=== PATIENT | male | born 1935 | race Caucasian/White ===

== ENCOUNTER → 2018-06-22 | Outpatient (CLI) | payer MEDICARE, OTHER ==
[~2018-06-22] MED LIST: ASPIR 8181 MG PO; BRILINTA90 MG PO; CARVEDILOL12.5 MG PO; LEVALBUTER0.63 MG/3 INH; LIPITOR 20 MG T20 M1 PO; LOSARTAN POTAS100 MG PO; METFORMIN HCL500 MG PO; NEURONTIN 300300 M1 PO; NORCO 10-325 T1 EACH PO; PREDNISONE 10 M10 MG PO; PROTONIX40 M1 PO
== END ==
LOC: M.RAD 08:34
DX: M47.816 Spondylosis without myelopathy or radiculopathy, lumbar region (principal); M41.86 Other forms of scoliosis, lumbar region; M25.78 Osteophyte, vertebrae; I25.10 Atherosclerotic heart disease of native coronary artery without angina pectoris

== ENCOUNTER → 2018-06-30 | Outpatient (CLI) | payer MEDICARE, OTHER | LOC: M.LAB 08:21 | DX: C61 Malignant neoplasm of prostate (principal); I25.10 Atherosclerotic heart disease of native coronary artery without angina pectoris; Z87.891 Personal history of nicotine dependence; R97.8 Other abnormal tumor markers; R91.8 Other nonspecific abnormal finding of lung field ==

== ENCOUNTER → 2018-07-11 | Day surgery (SDC) | payer MEDICARE, OTHER ==
--- NOTE | ~2018-07-11 | PROC ---
[address] [address] PROCEDURE REPORT Name: KHOI NOLAN Room: [facility].#: [id number] Admission: 07/11/18 Attend Phys: Khadar Mcpherson MD Discharge: Date of : 35 Report #: [id number] THIS REPORT FOR: //name// For GI report, please see the Provation report in Perceptive 7 content. By: [id number] Records Staff [facility] /ALFONSO
[2018-07-11 12:05] LABS: HEMATOCRIT 38.5 % (42.0-52.0); HEMOGLOBIN 13.1 gm/dL (14.0-18.0); MCH 32.5 pg (26.0-34.0); MCHC 34.1 g/dL (28.0-37.0); MCV 95.4 fL (80.0-100.0); MPV 7.9 fl. (7.2-11.1); RBC 4.04 mil/uL (4.50-6.00); RDW-CV 13.8 % (10.5-14.5); WBC 10.7 thou/uL (4.0-11.0)
[2018-07-11 12:11] LABS: CREATININE 1.2 mg/dL (0.6-1.3); POTASSIUM 5.3 mmol/L (3.5-5.1)
--- NOTE | 2018-07-11 17:31 | EKG ---
[place] [address] ELECTROCARDIOGRAM REPORT Name: KHOI NOLAN Room: [facility].#: [id number] Admission: 07/11/18 Attend Phys: Khadar Mcpherson MD Discharge: Date of : 35 Report #: [id number] THIS REPORT FOR: //name// [facility] Test Date: 2018-07-11 Test Time: 12:49:19 Pat Name: KHOI NOLAN Department: Room: Gender: M Refining Supervisor: : 1935 Requested By: Khadar Mcpherson Order Number: [id number] Reading MD: Jesus Lemus Measurements Intervals [place] Rate: 60 P: HI: 156 QRS: 3 QRSD: 117 T: 88 QT: 407 QTc: 407 Interpretive Statements Atrial-paced rhythm Nonspecific intraventricular conduction delay Anteroseptal infarct, age indeterminate low voltage No previous ECG available for comparison Electronically Signed On 07-11-2018 17:31:31 CDT by Jesus Lemus [email or web address] <ELECTRONICALLY SIGNED> By: Jesus Lemus MD, [facility] 07/11/18 1731 1249 1249 Jesus Lemus MD, FACC /EPI
--- NOTE | 2018-07-13 11:08 | PATH ---
[facility] [address] [place] [address] PATHOLOGY RPT PROCEDURE Name: KHOI NOLAN Room: [facility].#: [id number] Admission: 07/11/18 Date of : 35 Discharge: Report #: [id number] Path Case #: [id number] [facility] Accession Number: [id number] . 01 Material submitted: . SIGMOID COLON POLYP . 01 Clinical history: . Screening, Hx prostate cancer, family HX colon cancer . 02 Diagnosis: Tissue submitted as "sigmoid colon polyp": - Birefringent debris and probable vegetable material without colonic tissue. (DENISE:hoda; 07/12/2018) QMS/07/12/2018 . 02 Electronically signed: . Bean Bob MD, Pathologist NPI- [id number] . 01 Gross description: . Received in formalin labeled "White, Khoi, sigmoid colon polyp," are multiple segments of possible davidson soft tissue admixed with possible vegetative material measuring 0.8 x 0.2 x 0.1 cm in aggregate dimensions. The specimen is filtered and entirely submitted in cassette A1. (TSD; 07/11/2018) . Upon second evaluation, no additional tissue is found remaining within the container. (CAA; 07/12/2018) TOB/TOB . 02 Pathologist provided ICD-10: Z12.11, Z80.0 . 02 CPT . 231879 Specimen Comment: A courtesy copy of this report has been sent to Specimen Comment: [phone], . Specimen Comment: Report sent to and Performed at: [address] [id number] MD Dragan Morales MD Phone: [phone] Performed at: [address], [place] [id number] [place] [address] PATHOLOGY RPT PROCEDURE Name: KHOI NOLAN Room: [facility].#: [id number] Admission: 07/11/18 Date of : 35 Discharge: Report #: [id number] Path Case #: [id number] MD Bean Bob MD Phone: [phone]
== END | disposition home or self-care (01) ==
LOC: M.SUR 08:23
PROVIDERS: Internal Medicine Gastroenterology
DX: K63.89 Other specified diseases of intestine (principal); K57.30 Diverticulosis of large intestine without perforation or abscess without bleeding; K21.9 Gastro-esophageal reflux disease without esophagitis; I10 Essential (primary) hypertension; I25.10 Atherosclerotic heart disease of native coronary artery without angina pectoris; I25.2 Old myocardial infarction; E11.9 Type 2 diabetes mellitus without complications; E78.5 Hyperlipidemia, unspecified; J44.9 Chronic obstructive pulmonary disease, unspecified; F17.210 Nicotine dependence, cigarettes, uncomplicated; Z98.890 Other specified postprocedural states; Z95.0 Presence of cardiac pacemaker; Z79.899 Other long term (current) drug therapy; Z95.5 Presence of coronary angioplasty implant and graft; Z86.73 Personal history of transient ischemic attack (TIA), and cerebral infarction without residual deficits; Z79.82 Long term (current) use of aspirin; Z80.0 Family history of malignant neoplasm of digestive organs; Z85.46 Personal history of malignant neoplasm of prostate

== ENCOUNTER → 2018-08-08 | Outpatient (CLI) | payer MEDICARE, OTHER | LOC: M.RAD 09:48 | DX: I71.4 Abdominal aortic aneurysm, without rupture (principal); Z95.828 Presence of other vascular implants and grafts ==

== ENCOUNTER 2018-08-14 12:15 | Inpatient (IN) | payer MEDICARE, OTHER ==
[~2018-08-14] VITALS: Ht 172.7 cm; Wt 69.4 kg
[~2018-08-14 12:15] MED LIST changes: -BRILINTA90 MG PO; -LEVALBUTER0.63 MG/3 INH; -PREDNISONE 10 M10 MG PO
[2018-08-14 12:16] VITALS: BP 114/62
[2018-08-14 12:28] LABS: ABSOLUTE BASOPHILS 0.1 thou/uL (0.0-0.2); ABSOLUTE EOSINOPHILS 0.7 thou/uL (0.0-0.7); ABSOLUTE LYMPHOCYTES 4.3 thou/uL (0.8-5.3); ABSOLUTE MONOCYTES 1.1 thou/uL (0.0-1.2); ABSOLUTE NEUTROPHILS 5.8 thou/uL (1.6-8.1); BASOPHILS 0.9 %; HEMATOCRIT 37.1 % (42.0-52.0); HEMOGLOBIN 12.2 gm/dL (14.0-18.0); LYMPHOCYTES 35.8 %; MCH 31.9 pg (26.0-34.0); MCHC 32.9 g/dL (28.0-37.0); MPV 8.5 fl. (7.2-11.1); NUCLEATED RBCS 0 /100WBC; PLATELET COUNT* 318 thou/uL (150-400); POLYS 48.3 %; RBC 3.83 mil/uL (4.50-6.00); RDW-CV 13.9 % (10.5-14.5); WBC 12.1 thou/uL (4.0-11.0)
[2018-08-14 12:37] LABS: ANION GAP 5 mmol/L (7-16); BUN 11 mg/dL (7-18); CHLORIDE 104 mmol/L (98-107); CO2 29 mmol/L (21-32); CREATININE 1.3 mg/dL (0.6-1.3); GLUCOSE 138 mg/dL (70-99); POTASSIUM 5.2 mmol/L (3.5-5.1); SODIUM 138 mmol/L (136-145)
[2018-08-14 12:48] LABS: ALBUMIN 3.8 g/dL (3.4-5.0); ALKALINE PHOSPHATASE 78 U/L (46-116); APTT 23.6 Seconds (25.0-31.3); LIPASE 104 U/L (73-393); NT-PRO BRAIN NAT PEPTIDE 620 pg/mL (<300); PROTIME 10.4 Seconds (9.20-11.50); SGOT 20 U/L (15-37); SGPT 23 U/L (30-65); TOTAL BILIRUBIN 0.4 mg/dL (<0.1-1.0); TROPONIN-I LEVEL <0.06 ng/mL (<0.06)
[2018-08-14 15:25] VITALS: BP 120/51
--- NOTE | 2018-08-14 16:14 | NUR ---
RECIEVIED REPORT FROM GUILLE SZYMANSKI IN ER OF EXPECTED TRANSFER- DX: CHEST PAIN- PT ARRIVED TO UNIT AT 1530 VIA CART, SBA TO BED- OIL INSPECTOR PLACE ORDERED, TRACING A-PACED WITH NOTED PACE MAKER AND DIFIBULLATOR- PT A&O X4- CONTINENT OF BOWEL AND BLADDER- SBA WITH TRANSFERS FOR SAFETY- LCTA, DIMINISHED LUNG SOUNDS NOTED, RESP EVEN AND UN-LABORED- DYSPNEA NOTED ON EXERTION- VS 97.5 18 145/76 78 95% ON RA- ABDOMEN SOFT/ROUND/NON-TENDER, BS X4 QUADS- PT REPORTS LG BM THIS AM- IV NOTED TO LEFT FA INTACT AND SL- SKIN C/DI, BOTTOM PINK AND BLANCHABLE- HAS UPPER AND LOWER DENTURES- PT RATES PAIN 5/10 TO LEFT HIP THAT IS CHRONIC AND HE IS CURRENLTY RECIEVING REHAB FOR- CARDIOLOGY CONSULTED ORDERED- CALL LIGHT AND PERSONAL BELONGINGS WITH IN REACH- ALL NEEDS MET AT THIS TIME-MICH
[2018-08-14 17:20] VITALS: BP 139/65
--- NOTE | 2018-08-14 17:54 | EKG ---
[place] [address] ELECTROCARDIOGRAM REPORT Name: KHOI NOLAN Room: [address] ADM IN .R.#: [id number] Admission: 08/14/18 Attend Phys: Juanita Grande MD Discharge: Date of : 35 Report #: [id number] THIS REPORT FOR: //name// [facility] ED Test Date: 2018-08-14 Test Time: 12:19:39 Pat Name: KHOI NOLAN Department: Room: [facility] Gender: M Cafe Manager: ALFONSO : 1935 Requested By: Geovanny Jean Order Number: [id number] MD: Nixon Machuca Measurements Intervals [place] Rate: 75 P: IL: 185 QRS: -19 QRSD: 83 T: 104 QT: 387 QTc: 433 Interpretive Statements Atrial-paced rhythm Inferior infarct, old Anteroseptal infarct, age indeterminate Compared to ECG 07/11/2018 12:49:19 Intraventricular conduction delay no longer present Myocardial infarct finding still present Electronically Signed On 08-14-2018 17:54:36 CDT by Nixon Machuca [email or web address] <ELECTRONICALLY SIGNED> By: Nixon Machuca MD, FACC 08/14/18 1754 1219 1219 Nixon Machuca MD, FACC /EPI
[2018-08-14 20:06] VITALS: BP 107/58
[2018-08-15] VITALS (16 sets, daily range): BP systolic 94–132; BP diastolic 33–88
--- NOTE | 2018-08-15 05:38 | NUR ---
Pt reports he slept well for shift, though interrupted for care, lab draws, & VS. Clear liquids overnight; will be NPO after CL breakfast. Anticipating angiogram today. Heparin gtt infusing, at therapeutic PTT at 0030. Next PTT due at 0630. IVF infusing. Denies chest pain since arrival to ED. Troponins negative thus far. Will continue to monitor.
[2018-08-15 06:24] LABS: HEMATOCRIT 33.7 % (42.0-52.0); HEMOGLOBIN 11.2 gm/dL (14.0-18.0); MCH 31.9 pg (26.0-34.0); MCHC 33.2 g/dL (28.0-37.0); MCV 96.1 fL (80.0-100.0); MPV 8.1 fl. (7.2-11.1); RBC 3.51 mil/uL (4.50-6.00); RDW-CV 13.7 % (10.5-14.5); WBC 10.2 thou/uL (4.0-11.0)
[2018-08-15 07:20] LABS: CALCIUM 8.7 mg/dL (8.5-10.1); CREATININE 1.2 mg/dL (0.6-1.3); POTASSIUM 4.8 mmol/L (3.5-5.1)
--- NOTE | 2018-08-15 09:00 | NUR ---
ASSUMED CARE OF PT AT 0730. PT RESTING IN BED. PT A&0X4, DENIES ANY PAIN OR SHORTNESS OF BREATH. PT TREATED FOR PAIN BY NOC SHIFT WITH COMPLETE RELIEF. PT NPO AT THIS TIME FOR CARDIAC HEART CATH THIS AM. CONSENT SIGNED AND PLACED IN FRONT OF CHART. AM MEDS GIVEN PER DOOR FURRING INSTALLER REQUEST. PT TRACING A PACED ON THE VOCATIONAL TRAINING DIRECTOR. PT ON RA SAT UPPER 90'S. PT UP SBA TO BATHROOM. HEPARIN AND IVF INFUSING. PT FAMILY AT BEDSIDE AND UPDATED ON CURRENT PLAN OF CARE. PT GOAL FOR TODAY IS HEART CATH. AM ASSESSMENT CHARTED. MEDICATIONS PER DEC. PT REPOSITIONS SELF. HOURLY ROUNDING OBSERVED. BED IN LOW POSITION. CALL LIGHT WITHIN REACH. WILL CONTINUE PLAN OF CARE.
--- NOTE | 2018-08-15 12:25 | NUR ---
Pt out of room when CM went to assess, will f/u later
--- NOTE | 2018-08-15 16:11 | 2DMMODE ---
[place] [address] 2 D/M-MODE ECHOCARDIOGRAM Name: KHOI NOLAN Room: [address] IN [facility]#: [id number] Admission: 08/14/18 Attend Phys: Juanita Grande, Discharge: Date of : 35 Date of Service: 08/15/18 1611 Report #: [id number] THIS REPORT FOR: //name// APPROVED REPORT Study performed: 08/15/2018 13:11:21 EXAM: Comprehensive 2D, Doppler, and color-flow Echocardiogram Patient Location: In-Patient Room #: [facility] Status: routine BSA: 1.84 HR: 61 bpm BP: 96/39 mmHg Rhythm: NSR Other Information Study Quality: Good Indications Pacemaker CAD Chest Pain 2D Dimensions IVSd: 10.94 (7-11mm) LVOT Diam: 18.76 (18-24mm) LVDd: 49.78 mm PWd: 9.92 (7-11mm) Ascending Ao: 27.53 (22-36mm) LVDs: 23.00 (25-40mm) Aortic Root: 27.91 mm Volumes Left Atrial Volume (Systole) LA ESV Index: 19.00 mL/m2 Aortic Valve AoV Peak Ross.: 1.86 m/s AO Peak Gr.: 13.87 mmHg LVOT Max P.38 mmHg AO Mean Gr.: 7.50 mmHg LVOT Mean P.82 mmHg LVOT Max V: 1.05 m/s AO V2 VTI: 47.90 cm LVOT Mean V: 0.60 m/s WILFREDO (VTI): 1.38 cm2 LVOT V1 VTI: 23.94 cm Mitral Valve E/A Ratio: 0.81 [place] [address] 2 D/M-MODE ECHOCARDIOGRAM Name: KHOI NOLAN Room: [address] IN .R.#: [id number] Admission: 08/14/18 Attend Phys: Juanita Grande, Discharge: Date of : 35 Date of Service: 08/15/18 1611 Report #: [id number] MV Decel. Time: 185.44 ms MV E Max Ross.: 0.77 m/s MV PHT: 53.78 ms MVA (PHT): 4.09 cm2 TDI E/Lateral E': 9.63 E/Medial E': 11.00 Medial E' Ross.: 0.07 m/s Lateral E' Ross.: 0.08 m/s Pulmonary Valve PV Peak Ross.: 0.92 m/s PV Peak Gr.: 3.36 mmHg Left Ventricle The left ventricle is normal size. There is akinesis of the distal anterior anteroseptal septal and apical wall. There is normal left ventricular wall thickness. Left ventricular systolic function is mildly decreased. LVEF is 40-45%. Grade I - abnormal relaxation pattern. Right Ventricle The right ventricle is normal size. The right ventricular systolic function is normal. Pacemaker lead is present in the right ventricle. Atria The left atrium size is normal. The right atrium size is normal. Aortic Valve Moderate aortic valve sclerosis. No aortic regurgitation is present. Mild to moderate aortic stenosis. Mitral Valve There is mitral annular calcification. There is no mitral valve regurgitation noted. No evidence of mitral valve stenosis. Tricuspid Valve The tricuspid valve is normal in structure. Unable to assess PA pressure. Trace tricuspid regurgitation. Pulmonic Valve The pulmonary valve is normal in structure. There is no pulmonic valvular regurgitation. Great Vessels The aortic root is normal in size. IVC is [place] [address] 2 D/M-MODE ECHOCARDIOGRAM Name: KHOI NOLAN Room: [address] IN [facility]#: [id number] Admission: 08/14/18 Attend Phys: Juanita Grande, Discharge: Date of : 35 Date of Service: 08/15/18 1611 Report #: [id number] collapses >50% with inspiration. Pericardium There is no pericardial effusion. <Conclusion> The left ventricle is normal size. There is normal left ventricular wall thickness. Left ventricular systolic function is mildly decreased. LVEF is 40-45%. Grade I - abnormal relaxation pattern. There is akinesis of the distal anterior anteroseptal septal and apical wall. Moderate aortic valve sclerosis. Mild to moderate aortic stenosis. IVC is normal in size and collapses >50% with inspiration. <ELECTRONICALLY SIGNED> By: Nixon Machuca MD, FACC 08/15/181610 10 10 Nixon Machuca MD, FACC /INF
--- NOTE | 2018-08-15 17:32 | NUR ---
NO ACUTE CHANGES THROUGHOUT SHIFT. REFER TO CHARTING. POST CARDIAC CATH VITALS CHARTED. NO STENT PLACEMENT. LEFT GROIN CATH SITE C/D/I WITH NO HEMATOMA NOTED. BEDREST UP AT 1700. PT COMPLAINED OF PAIN TO BACK, TREATED WITH PRN HYDROCODONE WITH PARTIAL RELIEF. AT BEDSIDE THIS AFTERNOON AND UPDATED ON CURRENT PLAN OF CARE. PT CONTINUES TO TRACE A PACED ON THE MEAT LUGGER. ON RA SAT UPPER 90'S. DENIES ANY SHORTNESS OF BREATH. PT UP SBA TO BATHROOM. PT HAD ECHO TODAY-REFER TO RESULTS. PT PROGRESSING TOWARDS GOALS. PROBABLE DISCHARGE HOME TOMORROW. MEDICATIONS PER MAR. PT REPOSITIONS SELF. HOURLY ROUNDING OBSERVED. BED IN LOW POSITION. CALL LIGHT WITHIN REACH. WILL CONTINUE PLAN OF CARE.
--- NOTE | 2018-08-15 19:48 | CARD ---
[address] [address] CARDIAC CATH REPORT Name: KHOI NOLAN Room: 215-P ADM IN .R.#: [id number] Admission: 08/14/18 Attend Phys: Juanita Grande MD Discharge: Date of : 35 Report #: [id number] THIS REPORT FOR: //name// APPROVED REPORT Study performed: 08/15/2018 08:37:50 Patient Details Patient Status: In-Patient Room #: 215 The patient is a 83 year-old male Event Personnel Nixon Machuca Mat Making Machine Tender, Adeola Cruz RN RN, Lenora Pfeiffer, Eduardo Lawson Winkel, Angela RCIS Scrub, Holkins, John Promotions Representative, Jessika Salcedo RN Fitness Center Attendant Procedures Performed Art Access - L femoral artery* Left Heart Cath w/or w/o Coronaries LHC FFR FFR Procedure Narrative The patient was brought electively to the Cardiac Catheterization Laboratory and was prepped and draped in a sterile manner. The left femoral was infiltrated with 2% Lidocaine subcutaneous anesthesia. A 6fr Ultimum Sheath sheath was inserted into the left femoral artery. Coronary angiography was performed using coronary diagnostic catheters. The right coronary system was accessed and visualized with a Diagnostic 6Fr JR4 catheter. The left coronary system was accessed and visualized with a Diagnostic 6Fr JL4 catheter. The left ventricle was accessed and visualized with a Diagnostic 6Fr angled pigtail catheter. Left ventriculogram was performed in ESTRADA projection. Closure device was deployed with a Fr Mynx 6Fr/7Fr. Hemostasis was obtained with manual pressure following sheath removal without any complications. The patient tolerated the procedure well and there were no complications associated with the procedure. Intraoperative Conscious Sedation Sedation start time: 11:00 Case end Time: 12:13 Fentanyl 50 mcg Versed 2 mg Fluoro Time: 8.9 minutes Dose: DAP 24296 cGycm2 959 mGy Contrast Type and Amount: Omnipaque [address] [place] [address] CARDIAC CATH REPORT Name: KHOI NOLAN Room: [address] IN [facility]#: [id number] Admission: 08/14/18 Attend Phys: Juanita Grande MD Discharge: Date of : 35 Report #: [id number] Coronary Angiography The patient's coronary anatomy is right dominant. Diagnostic Cath Left Main Normal. LAD The proximal portion is approximately 40% narrowed and heavily calcified. There is a patent stents present. The mid and distal vessel are free of significant disease. Diagonal 1 The proximal portion of the vessel is a 50% narrowing. The mid and distal vessel are free of significant disease. Diagonal 2 Normal. Circumflex Normal. OM1 The proximal vessel is 60% narrowed. The mid and distal vessel are free of significant disease. Right Coronary The proximal/ostial portion of the vessel is 50% narrowed. The remainder the vessel is free of significant disease. R PDA Normal. RPLV Normal. Left Ventriculography The left ventricle is normal in size with reduced contractility. The left ventricular ejection fraction is estimated to be 40-45%. Left ventricular wall motion abnormalities are present. There appears to be significant hypokinesis to akinesis of the mid to apical anterior wall. IVUS Anticoagulation was achieved with Heparin. Fractional Flow Arnot was performed on the proximal right coronary artery and circumflex vessel. Hemodynamics The aortic pressure is 107/44 mmHg with a mean of 66 mmHg. The left ventricular pressure is 121/9 mmHg with a mean of mmHg. The left ventricular end diastolic pressure is 23 mmHg. Pullback from the left ventricle to the aorta revealed no gradient across the aortic valve. PCI Technique Lesion The lesion stenosis prior to intervention was proximal right coronary artery and circumflex% with CRISTAL flow. Conclusion 1. Moderate nonocclusive coronary artery [place] [address] CARDIAC CATH REPORT Name: KHOI NOLAN Room: [address] IN [facility]#: [id number] Admission: 08/14/18 Attend Phys: Juanita Grande MD Discharge: Date of : 35 Report #: [id number] 2. Widely patent stents in the proximal LAD. 3. Moderate left ventricular systolic dysfunction as outlined above. 4. Normal left ventricular end-diastolic pressure. 5. Fractional flow reserves of the lesion in the circumflex and right coronary arteries were unremarkable. Recommendations 1. Continue aggressive risk factor modification and medical management. <ELECTRONICALLY SIGNED> By: Nixon Machuca MD, FACC 08/15/181946 46 46Micmae Machuca MD, FACC /INF
[2018-08-16] VITALS (19 sets, daily range): BP systolic 105–132; BP diastolic 48–75
--- NOTE | 2018-08-16 03:19 | NUR ---
ASSUMED CARE OF PATIENT AT 1900. VSS, AFEBRILE. CATH SITE WITH BANDAGE IN PLACE, NO BRUISING NOTED. STATES HE DOES TAKE PAIN MEDS FOR ARTHRITIS, GIVEN NEEDED. SLEEPS OFF AND ON THROUGH THE NIGHT. ANTICIPATING DC. PROGRESSING WELL TOWARDS POC GOALS.
--- NOTE | 2018-08-16 14:53 | NUR ---
I HAVE REVIEWED THE REASSESSMENT AND DOCUMENTATION BY STUDENT NURSE PAIGE AVELAR AND AGREE
--- NOTE | 2018-08-16 14:59 | NUR ---
Pt is A&O. Resides at home with his . Supportive family. No DME. Pt had cath yesterday, plan to have repeat cath today. Goal is home at co. Following.
--- NOTE | 2018-08-16 18:34 | NUR ---
VSS, ASSUMED CARE IN THE AM, ASSESSMENT PERFORMED AND CHARTED, FALL PREACUTIONS IN PLACE AND CALL LIGHT IN REACH, PT IS A&O4 AND ON RA, A PACED ON THE MONITOR AND IS UP AD GUERA, HE STATES PAIN IN HID BACK AND HIS GOAL IS TO COMPLETE CATH TODAY, WILL FOLLOW WITH PLAN OF CARE,
--- NOTE | 2018-08-16 18:36 | NUR ---
VSS, ASSUMED CARE OF PT POST CATH, CATH SITE ON LEFT GROIN IS C/D/I WILL FOLLOW WITH VITALS.
[2018-08-17] VITALS: BP 99/55
[2018-08-17 04:00] VITALS: BP 136/67
[2018-08-17 04:30] LABS: HEMATOCRIT 26.2 % (42.0-52.0); MCH 32.3 pg (26.0-34.0); MCHC 34.1 g/dL (28.0-37.0); MCV 94.5 fL (80.0-100.0); MPV 8.5 fl. (7.2-11.1); RBC 2.78 mil/uL (4.50-6.00); RDW-CV 13.5 % (10.5-14.5); WBC 11.1 thou/uL (4.0-11.0)
[2018-08-17 05:05] LABS: ALBUMIN 3.2 g/dL (3.4-5.0); ALKALINE PHOSPHATASE 52 U/L (46-116); ANION GAP 7 mmol/L (7-16); BUN 20 mg/dL (7-18); CALCIUM 8.5 mg/dL (8.5-10.1); CHLORIDE 102 mmol/L (98-107); CHOLESTEROL 126 mg/dL (<200); CO2 25 mmol/L (21-32); CREATININE 1.4 mg/dL (0.6-1.3); GLUCOSE 116 mg/dL (70-99); HDL CHOLESTEROL 32 mg/dL (>40); LDL CHOLESTEROL 64 mg/dL (<100); SGOT 16 U/L (15-37); SGPT 24 U/L (30-65); SODIUM 134 mmol/L (136-145); TC:HDL 3.9 Ratio (Not establshd); TOTAL BILIRUBIN 0.4 mg/dL (<0.1-1.0); TOTAL PROTEIN 5.5 g/dL (6.4-8.2); TRIGLYCERIDE 153 mg/dL (<150); TROPONIN-I LEVEL <0.06 ng/mL (<0.06); VLDL 31 mg/dL (<40)
[2018-08-17 05:06] LABS: SERUM ASSESSMENT CLEAR
--- NOTE | 2018-08-17 05:10 | NUR ---
ASSUMED CARE OF PT AFTER REPORT AT 1930. PT A&OX4. VSS. PHYSICAL ASSESSMENT COMPLETED AND CHARTED. PT ON RA WITH 98% O2 SAT. PT TRACING A-PACED ON TELE. PT UP ADLIB TO RESTROOM. POST CATH SITE TO LEFT GROIN CLEAN, DRY & INTACT. NO BLEEDING OR HEMATOMA NOTED. PT COMPLAINED OF CHRONIC HIP PAIN WITH PAIN SCALE OF 4/10-DENIES PAIN MEDS FOR NOW. CALL LIGHT WITHIN REACH. BED IN LOW POSITION. BED ALARM ON.
[2018-08-17 07:58] VITALS: BP 129/60
[2018-08-17 10:15] VITALS: BP 129/60
[2018-08-17] MEDS ORDERED: LEVALBUTER0.63 MG/3 INH (10:30)
[2018-08-17] MEDS ORDERED: PREDNISONE 10 M10 MG PO (10:30)
[2018-08-17] MEDS ORDERED: BRILINTA90 MG PO (10:57)
--- NOTE | 2018-08-17 11:06 | CARD ---
[address] [address] CARDIAC CATH REPORT Name: KHOI NOLAN Room: [address] IN ..#: [id number] Admission: 08/14/18 Attend Phys: Juanita Grande MD Discharge: Date of : 35 Report #: [id number] THIS REPORT FOR: //name// APPROVED REPORT Study performed: 08/16/2018 15:39:07 Patient Details Patient Status: In-Patient Room #: 215 The patient is a 83 year-old male Event Personnel Khoi Velázquez Breaker Mechanic, Adeola Cruz RN Furnace Installer, Tanja Cruz RTR Monitor, John Donis (R) Shasha Rainey Tina RN Furnace Installer Procedures Performed Art Access - L femoral artery* left heart catheterization, Coronary Angiography Only CORANG LEA Place w/wo Plasty Single CIRC LEA Place w/wo Plasty Single RCA Hemostasis w/ Angioseal Indication Unstable angina Risk Factors Hypercholesterolemia, Hypertension Previous Procedures/Diagnoses Previous PCI, Previous CT Admission/Lab Medications/Medications given during procedure Aspirin, Platelet Aff. Inhib., Angiomax bolus and infusion Procedure Narrative The patient was brought electively to the Cardiac Catheterization Laboratory and was prepped and draped in a sterile manner. The left femoral was infiltrated with 2% Lidocaine subcutaneous anesthesia. A Dinosaur 6 FR sheath was inserted into the left femoral artery. Coronary angiography was performed using coronary diagnostic catheters. The left coronary system was accessed and visualized with a Diagnostic 6Fr JL4 catheter. The left ventricle was accessed and visualized with a Diagnostic 6Fr straight pigtail catheter. Left ventricular/Aortic Valve gradient assessed via catheter pullback. Left ventriculogram was performed in ESTRADA projection. Pre-demployment femoral angiogram was performed . Closure [place] [address] CARDIAC CATH REPORT Name: ANAIRAS Room: [address]#: [id number] Admission: 08/14/18 Attend Phys: Juanita Grande MD Discharge: Date of : 35 Report #: [id number] 6 Fr Angioseal. Hemostasis was obtained with manual pressure following sheath removal without any complications. The patient tolerated the procedure well and there were no complications associated with the procedure. There was no hematoma. Intraoperative Conscious Sedation Sedation start time: 16:17 Case end Time: 17:15 Fentanyl 50 mcg Versed 1 mg Fluoro Time: 21.9 minutes Dose: DAP 508147 cGycm2 2374 mGy Contrast Type and Amount: Visipaque 460 ml Coronary Angiography The patient's coronary anatomy is right dominant. Diagnostic Cath Left Main 0% narrowing LAD 80% proximal stenosis followed by 90% proximal stenosis with 70% narrowing of the proximal portion of the first diagonal branch Circumflex 75% calcified proximal stenosis Right Coronary Dominant vessel with 80% ostial proximal stenosis Left Ventriculography Left Ventriculography was not performed. Hemodynamics The aortic pressure is 133/61 mmHg with a mean of 79 mmHg. The left ventricular pressure is 141/17 mmHg with a mean of mmHg. The left ventricular end diastolic pressure is 25 mmHg. Pullback from the left ventricle to the aorta revealed no gradient across the aortic valve. PCI Technique Lesion Percutaneous coronary intervention was performed on the proximal circumflex artery segment. The lesion stenosis prior to intervention was 75% with CRISTAL 3 flow. A 6FR XB 3.5 100CM Guide Catheter was used to engage the ostium. A BMW 190cm Interventional Guidewire was used to cross the lesion. BALLOON DILATION A Balloon catheter NC Euphora 2.5x12 was inserted and inflated up to 18.00atm for 3seconds. Additional Inflation: 20.00atm for 4seconds. [place] [address] CARDIAC CATH REPORT Name: KHOI NOLAN Room: [address]#: [id number] Admission: 08/14/18 Attend Phys: Juanita Grande MD Discharge: Date of : 35 Report #: [id number] EA NC Trek balloon RX 2,75X12 was inserted and inflated to 18:00 charles for 11 seconds. 18 charles for 6 seconds. 22 charles for 15 seconds. STENT DEPLOYMENT A drug-eluting stent Xience Alpine RX 2.75X15 was inserted and inflated up to 15.00atm for 9seconds. Additional Inflation: 18.00atm for 7seconds. POST STENT DEPLOYMENT BALLOON DILATION A Balloon catheter NC Trek RX 3.0 X 8 was inserted and inflated up to 16.00atm for 8seconds. Additional Inflation: 17.00atm for 8seconds. Additional Inflation: 18.00atm for 9seconds. Final angiography reveals 10 % stenosis with CRISTAL 3 flow. PCI Technique Lesion 2 Percutaneous Coronary Intervention was performed on the proximal right coronary artery. The lesion stenosis prior to intervention was 80% with CRISTAL 3 flow. A 6F 3DRC Guide Catheter was used to engage the ostium. A BMW 190cm Interventional Guidewire was used to cross the lesion. Stent Deployment A drug-eluting stent Xience Alpine RX 3.0X12,3.0x8 was inserted and inflated up to 16.00atm for 14seconds. Additional Inflation: 18.00atm for 9seconds. Additional Inflation: 20.00atm for 9seconds. A drug-eluting stent EA Xience Alpine RX 3.0X8 was inserted and inflated up to 14:00 charles for 11 seconds. 15:00 for 6 seconds Final angiography reveals 0 % stenosis with CRISTAL 3 flow. Conclusion #1 significant coronary artery disease characterized by the following: A 80% ostial LAD narrowing with 90% proximal stenosis and 70% narrowing of the proximal portion of the first diagonal branch; reciprocal flow distally reflected a patent KOWALSKI graft B 75% calcified proximal circumflex stenosis C 80% ostial proximal stenosis of the dominant right coronary artery #2 moderate to severe elevation of left ventricular end-diastolic [facility] [address] [place] [address] CARDIAC CATH REPORT Name: KHOI NOLAN Room: [address] IN M.R.#: [id number] Admission: 08/14/18 Attend Phys: Juanita Grande MD Discharge: Date of : 35 Report #: [id number] pressure at rest #3 successful percutaneous coronary intervention with deployment of a drug-eluting stent at site of 75% proximal circumflex stenosis with 10% residual narrowing #4 successful percutaneous coronary intervention with deployment of sequential drug-eluting stents at the site of 80% ostial proximal right coronary stenosis with 0% residual narrowing and CRISTAL-3 flow to the distal vessel Recommendations Cardiac Risk Reduction Program Aggressive Medical Therapy Medications Administered Aspirin (any) Ticagrelor Diagnostic Cath Approved by: Khoi Velázquez MD Date/Time: 08/17/2018 11:05:02 <ELECTRONICALLY SIGNED> By: Khoi Velázquez MD, [facility] 08/17/18 1105 1105 [id number] Velázquez MD, FACC /INF
[2018-08-17 11:30] VITALS: BP 129/60
[2018-08-17 11:40] VITALS: BP 123/65
--- NOTE | 2018-08-17 12:00 | NUR ---
ORDER FOR NEBULIZER AT HOME. SCRIPT ON CHART FOR [facility]. SPOKE WITH PT. HE SAID HE WOULD USE [facility], HE HAS USED THEM FOR SOMETHING BEFORE. TOLD HIM NEBULIZER AND MEDICATION WOULD BE DELIVERED TO HIS HOUSE. FAXED PRESCRIPTION AND ORDER FOR NEBULIZER,FACE SHEET,DISCHARGE SUMMARY TO [facility] [phone]. SPOKE WITH LEYDI ABOUT MED. SHE SAID THAT IS THE ONLY ONE THEY DO NOT CARRY. PT.WILL NEED TO GET AT HIS PHARMACY. LEFT MESSAGE FOR PT.ON HIS HOME PHONE # HE HAD ALREADY LEFT. GUILLE RUIZ REACHED FAMILY MEMEBER ON CELL THAT HAD DRIVEN HIM HOME AND LET THEM KNOW THIS ALSO.
[2018-08-17 12:06] LABS: HEMATOCRIT 30.2 % (42.0-52.0); MCH 32.1 pg (26.0-34.0); MCHC 33.2 g/dL (28.0-37.0); MCV 96.6 fL (80.0-100.0); MPV 8.2 fl. (7.2-11.1); RBC 3.13 mil/uL (4.50-6.00); RDW-CV 13.8 % (10.5-14.5); WBC 12.9 thou/uL (4.0-11.0)
--- NOTE | 2018-08-17 12:38 | NUR ---
ASSESSMENT COMPLETED REFER TO COMPUTER CHARTING. PATIENT RESTING IN BED WITH FAMILY AT BEDSIDE. PATIENT REPORTING NO PAIN, NAUSEA OR SHORTNESS OF AIR. BED IN LOW AND LOCKED POSITION. CALL LIGHT WITHIN REACH. IV AND TECHNICIAN INVENTORY SPECIALIST DISCONTINUED AND REMOVED. ALL PERSONAL BELONGINGS GATHERED AND SENT WITH PATIENT. DISCHARGE INSTRUCTIONS GIVEN AND PATIENT VERBALIZIED UNDERSTANDING. PATIENT AWAITING TRANSPORTATION AT THIS TIME.
--- NOTE | 2018-08-17 17:01 | EKG ---
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[facility] : 1935 Requested By: Khoi Velázquez Order Number: [id number] Lisa MD: Nixon Machuca Measurements Intervals [place] Rate: 62 P: NV: 168 QRS: 45 QRSD: 94 T: 105 QT: 431 QTc: 438 Interpretive Statements Atrial-paced rhythm Low voltage, precordial leads Nonspecific T abnrm, anterolateral leads Compared to ECG 08/14/2018 12:19:39 Low QRS voltage now present Myocardial infarct finding no longer present Electronically Signed On 08-17-2018 17:01:01 CDT by Nixon Machuca [email or web address] <ELECTRONICALLY SIGNED> By: Nixon Machuca MD, FACC 08/17/18 1701 0314 0314 Nixon Machuca MD, FAC /EPI
--- NOTE | 2018-08-19 12:22 | H ---
[place] [address] HISTORY AND PHYSICAL Name: ANKHOI Stein Room: [address] IN .R.#: [id number] Admission: 08/14/18 Attend Phys: Juanita Grande MD Discharge: 08/17/18 Date of : 35 Report #: [id number] THIS REPORT FOR: //name// CC: Juanita Landeros DATE OF SERVICE: 08/14/2018 HISTORY OF PRESENT ILLNESS: Thank you for allowing us to see the patient in cardiovascular assessment. As you know, he is a very pleasant male with complex diffuse atherosclerotic cardiovascular disease, status post multiple prior anterior infarctions with stenting of the LAD and a consequent ischemic cardiomyopathy. He also has significant peripheral vascular disease and is status post aortic stent grafting approximately 2000 with extension of the graft on to the right iliac by his description subsequently. This morning, he developed chest pain similar to his prior ischemic discomfort that lasted for 30 minutes to an hour, ultimately remitting in the [facility]. He has not had recrudescence of the discomfort. Initial troponin was unremarkable with no ischemic ST-T changes noted. The patient is comfortable at present. Risk factors for coronary artery disease include prior tobacco use, mixed hyperlipoproteinemia and type 2 diabetes. SOCIAL HISTORY: The patient has a significant antecedent cigarette smoking history. PAST MEDICAL HISTORY: Remarkable for abdominal aortic aneurysm status post stent grafting, BPH, cervical spondylosis, prior cigarette smoking, antecedent CVA, type 2 diabetes, hypertension, gastroesophageal reflux disease and prior ICD placement in the context of ischemic cardiomyopathy. MEDICATIONS: Included aspirin, atorvastatin, carvedilol, gabapentin, hydrocodone, losartan and metformin. REVIEW OF SYSTEMS: Remarkable for the following positives: Generally notes some malaise. He did describe sweats associated with the chest pain this morning. Cardiovascular is remarkable for prior myocardial infarction, prior stenting, history of atrial fib and ischemic cardiomyopathy. Endocrine is remarkable for type 2 diabetes. Remainder is unremarkable. PHYSICAL EXAMINATION: GENERAL: Demonstrates an elderly male who is alert, appropriate, [place] [address] HISTORY AND PHYSICAL Name: KHOI NOLAN Room: [address] IN [facility]#: [id number] Admission: 08/14/18 Attend Phys: Juanita Grande MD Discharge: 08/17/18 Date of : 35 Report #: [id number] distress. VITAL SIGNS: Blood pressure is 130/65, pulse rate is 82, respirations are 18 per minute. NECK: Jugular venous pressure is normal. No carotid bruits. CHEST: Clear. CARDIAC: Reveals normal first and second heart sounds with a grade 2-3/6 systolic ejection murmur with a question of S4 gallop. ABDOMEN: Mildly obese and nontender, without masses or organomegaly. EXTREMITIES: Reveal intact femoral with trace plus to 1+ pedal pulses. There are no deforming arthritic changes. SKIN: No petechiae or ecchymosis are noted. LABORATORY DATA: Reveals sodium of 138, potassium 5.2, BUN 11, creatinine 1.3. Troponin less than 0.06. NT-BNP 620, protime 10.4, INR 1.0 and PTT 23.6. Hemoglobin 12.2, white blood cell count 12,100 with 318,000 platelets. Electrocardiogram reveals evidence for old anteroseptal and inferior scars with minor nonspecific ST-T alterations. IMPRESSION: 1. Recurrent chest pain, strongly suggestive of acute coronary syndrome without current evidence for acute injury. 2. Coronary artery disease status post remote myocardial infarction and percutaneous coronary intervention of the left anterior descending on multiple occasions. 3. Ischemic cardiomyopathy with an implantable cardioverter-defibrillator in place. 4. Peripheral vascular disease, status post abdominal aortic stent grafting with extension down to the right iliac. 5. Hypertension. 6. Prior tobacco use. 7. Type 2 diabetes. RECOMMENDATIONS: 1. Agree with aspirin. 2. Will add a second antiplatelet agent. 3. Heparinization overnight. 4. Plan cardiac catheterization in the a.m. with strong consideration of intervention contingent on the results of the study. 5. Encourage tobacco abstinence. Thank you for allowing us to see the patient in cardiovascular assessment. <ELECTRONICALLY SIGNED> By: Khoi Velázquez MD, FACC 08/19/18 1222 1739 [id number] Velázquez MD, FACC /nt
== END 2018-08-17 13:09 | disposition home or self-care (01) | DRG 246 ==
LOC: M.ERS 12:15 → M.2W 14:13 → M.TBA-ER 14:13 → M.2W 15:30
PROVIDERS: Emergency Medicine Emergency Medical Services; Internal Medicine; ADMIT Internal Medicine
PROC: B2151ZZ Fluoroscopy of Left Heart using Low Osmolar Contrast (ICD-10-PCS; principal; 2018-08-15)
PROC: 4A023N7 Measurement of Cardiac Sampling and Pressure, Left Heart, Percutaneous Approach (ICD-10-PCS; principal; 2018-08-15)
PROC: B2111ZZ Fluoroscopy of Multiple Coronary Arteries using Low Osmolar Contrast (ICD-10-PCS; principal; 2018-08-15)
PROC: 027136Z Dilation of Coronary Artery, Two Arteries with Three Drug-eluting Intraluminal Devices, Percutaneous Approach (ICD-10-PCS; 2018-08-16)
PROC: 4A023N7 Measurement of Cardiac Sampling and Pressure, Left Heart, Percutaneous Approach (ICD-10-PCS; 2018-08-16)
PROC: B2151ZZ Fluoroscopy of Left Heart using Low Osmolar Contrast (ICD-10-PCS; 2018-08-16)
PROC: B2111ZZ Fluoroscopy of Multiple Coronary Arteries using Low Osmolar Contrast (ICD-10-PCS; 2018-08-16)
DX: I25.119 Atherosclerotic heart disease of native coronary artery with unspecified angina pectoris (principal); I50.33 Acute on chronic diastolic (congestive) heart failure; E11.9 Type 2 diabetes mellitus without complications; F17.210 Nicotine dependence, cigarettes, uncomplicated; N40.0 Benign prostatic hyperplasia without lower urinary tract symptoms; K21.9 Gastro-esophageal reflux disease without esophagitis; I25.5 Ischemic cardiomyopathy; E11.51 Type 2 diabetes mellitus with diabetic peripheral angiopathy without gangrene; R91.1 Solitary pulmonary nodule; D64.9 Anemia, unspecified; Z95.0 Presence of cardiac pacemaker; I25.2 Old myocardial infarction; Z95.5 Presence of coronary angioplasty implant and graft; Z85.46 Personal history of malignant neoplasm of prostate; Z92.3 Personal history of irradiation; Z86.73 Personal history of transient ischemic attack (TIA), and cerebral infarction without residual deficits; Z79.82 Long term (current) use of aspirin; Z79.899 Other long term (current) drug therapy

== ENCOUNTER 2018-11-22 21:34 | Emergency (ER) | payer MEDICARE, OTHER ==
[~2018-11-22] VITALS: Ht 172.7 cm; Wt 68.0 kg
[~2018-11-22 21:34] MED LIST changes: +BRILINTA90 MG PO; +LEVALBUTER0.63 MG/3 INH; +PREDNISONE 10 M10 MG PO
[2018-11-22 23:40] VITALS: BP 134/88
== END 2018-11-22 23:20 | disposition home or self-care (01) ==
LOC: M.ERS 21:34
DX: S61.401A Unspecified open wound of right hand, initial encounter (principal); E11.9 Type 2 diabetes mellitus without complications; Z95.810 Presence of automatic (implantable) cardiac defibrillator; Z95.5 Presence of coronary angioplasty implant and graft; Z85.46 Personal history of malignant neoplasm of prostate; W26.9XXA Contact with unspecified sharp object(s), initial encounter; Y93.89 Activity, other specified; Y92.89 Other specified places as the place of occurrence of the external cause; Y99.8 Other external cause status

== ENCOUNTER → 2018-12-29 | Outpatient (CLI) | payer MEDICARE, OTHER | LOC: M.RAD 13:19 | DX: S99.921A Unspecified injury of right foot, initial encounter (principal); M19.071 Primary osteoarthritis, right ankle and foot; E11.8 Type 2 diabetes mellitus with unspecified complications; X58.XXXA Exposure to other specified factors, initial encounter; Y93.89 Activity, other specified; Y92.89 Other specified places as the place of occurrence of the external cause; Y99.8 Other external cause status ==

== ENCOUNTER → 2019-07-10 | Outpatient (CLI) | payer MEDICARE, OTHER | LOC: M.CT 08:08 | DX: M47.816 Spondylosis without myelopathy or radiculopathy, lumbar region (principal); M48.061 Spinal stenosis, lumbar region without neurogenic claudication; M41.86 Other forms of scoliosis, lumbar region; G89.29 Other chronic pain ==

== ENCOUNTER → 2019-07-25 | Outpatient (CLI) | payer MEDICARE, OTHER ==
[~2019-07-25] MED LIST changes: +FISH OIL 1,001000 M2 PO; +PLAVIX 75 MG TA75 MG PO; +SPIRIVA18 MCG INH; +TRAMADOL 50 MG50 MG PO; +VITAMIN B-12500 MCG PO; +VITAMIN D3400 UNIT PO
== END ==
LOC: M.PC 05:31
DX: M47.816 Spondylosis without myelopathy or radiculopathy, lumbar region (principal); M51.36 Other intervertebral disc degeneration, lumbar region; E11.9 Type 2 diabetes mellitus without complications; I25.2 Old myocardial infarction; F17.200 Nicotine dependence, unspecified, uncomplicated; Z95.810 Presence of automatic (implantable) cardiac defibrillator; Z85.46 Personal history of malignant neoplasm of prostate; Z92.3 Personal history of irradiation; Z72.89 Other problems related to lifestyle